=== PATIENT | male | born 1985 | race Caucasian/White ===

== ENCOUNTER 2016-12-06 14:01 | Emergency (ER) | payer SELFPAY ==
[2016-12-06 14:09] VITALS: BP 133/91
[2016-12-06 14:19] LABS: Basophils % (Auto) 0.3 % (0.0-1.8); Eosinophils % (Auto) 0.6 % (0.0-4.3); Hematocrit 47.3 % (35.5-45.6); Hemoglobin 16.4 gm/dl (11.8-15.2); Mean Corpuscular HGB Conc 35 % (32-34); Mean Corpuscular Hemoglobin 31 pg (28-32); Mean Corpuscular Volume 90 fl (84-94); Platelet Count 273 K/mm3 (140-440); Red Blood Count 5.27 M/mm3 (3.65-5.03); White Blood Count 6.9 K/mm3 (4.5-11.0)
[2016-12-06 14:42] LABS: Anion Gap 18 mmol/L; BUN/Creatinine Ratio 12.85; Blood Urea Nitrogen 9 mg/dL (9-20); Calcium 9.1 mg/dL (8.4-10.2); Carbon Dioxide 26 mmol/L (22-30); Chloride 100.6 mmol/L (98-107); Glucose 125 mg/dL (75-100); Sodium 141 mmol/L (137-145)
--- NOTE | 2016-12-07 17:48 | ED Elopement Review ---
ED Pt Elopement review - Results review Lab results: Laboratory Tests 12/06/16 12/06/16 14:10 14:10 WBC 6.9 RBC 5.27 H Hgb 16.4 H Hct 47.3 H MCV 90 MCH 31 MCHC 35 H RDW 13.0 L Plt Count 273 Lymph % (Auto) 37.4 H Murray % (Auto) 5.0 Eos % (Auto) 0.6 Baso % (Auto) 0.3 Lymph # 2.6 Murray # 0.3 Eos # 0.0 Baso # 0.0 Seg Neutrophils % 56.7 Seg Neutrophils # 3.9 Sodium 141 Potassium 4.0 Chloride 100.6 Carbon Dioxide 26 Anion Gap 18 BUN 9 Creatinine 0.7 L Estimated GFR > 60 BUN/Creatinine Ratio 12.85 Glucose 125 H Calcium 9.1 Troponin T < 0.010 - Call Back decision Pt Call Back Decision: Pt to F/U with PMD
== END 2016-12-06 20:20 | disposition left against medical advice (07) ==
LOC: ED 14:01
DX: I95.9 Hypotension, unspecified (principal); Z53.21 Procedure and treatment not carried out due to patient leaving prior to being seen by health care provider
CPT/HCPCS: 36415; 80048; 84484; 85025; 93005; 93010